=== PATIENT | female | born 1990 | race Caucasian/White ===

== ENCOUNTER 2017-10-19 14:24 | Emergency (ER) | payer SELFPAY ==
[~2017-10-19] VITALS: Ht 154.9 cm; Wt 50.0 kg
[~2017-10-19 14:24] MED LIST: AMOXICILLIN500 MG OR; AUGMENTIN875 MG PO; CIPRO500 MG OR; CIPROFLOXACN500 MG PO; FLAGYL ER750 MG PO; FLAGYL PO; FLEXERIL OR; LORTAB 5/3255 MG PO; NAPROSYN500 MG OR; NAPROSYN500 MG PO; NO; NO HOME MEDS; NORCO1 TA1 PO; PHENERGAN25 MG/TAB PO; PRENATABS RX OR; PRENATAL1 TAB OR; ULTRAM50 M1 OR; ULTRAM50 MG OR; ZOFRAN ODT4 MG PO; ZOFRAN4 MG OR
[2017-10-19 15:02] LABS: HEMATOCRIT 40.6 % (37.0-47.0); HEMOGLOBIN 13.7 g/dl (12.0-16.0); IMMATURE GRANULOCYTES 0.1 % (0.0-1.0); MEAN CELL VOLUME 96.7 fL CALC (80.0-100.0); MEAN CORPUSCULAR HGB 32.6 pG CALC (26.0-32.0); MEAN CORPUSCULAR HGB CONC 33.7 g/L CALC (32.0-36.0); NEUT# 5.44 thou/uL (2.00-7.15); RED BLOOD COUNT 4.2 mill/uL (4.20-5.60); RED CELL DISTRI WIDTH 13.7 % (11.5-15.5)
[2017-10-19 15:20] LABS: ALBUMIN 4.3 g/dL (3.2-5.0); ALKALINE PHOSPHATASE 86 u/l (38-126); ANION GAP 16 (6-22 (CALC)); BILIRUBIN, TOTAL 0.3 mg/dL (0.0-1.4); BUN 13 mg/dL (7-17); BUN/CREATININE RATIO 15 (12-20 (CALC)); CALCIUM 9.4 mg/dL (8.4-10.2); CARBON DIOXIDE 22 mmol/l (22-30); CHLORIDE 109 mmol/l (95-108); CREATININE 0.9 mg/dL (0.5-1.0); GFR > 60 ML/MIN (>=60 (CALC)); GFR FOR AFR.AMER. > 60 ML/MIN (>=60 (CALC)); GLUCOSE 112 mg/dL (65-105); POTASSIUM 4.1 mmol/l (3.5-5.1); SGOT/AST 23 u/l (14-36); SGPT/ALT 17 u/l (9-52); SODIUM 143 mmol/l (137-146); TOTAL PROTEIN 6.6 g/dL (6.3-8.2)
[2017-10-19 15:32] LABS: MYOGLOBIN 39 ng/mL (0 - 62)
[2017-10-19 16:10] LABS: URINE BILIRUBIN - DIPSTICK NEGATIVE (NEGATIVE); URINE BLOOD DIPSTICK NEGATIVE (NEGATIVE); URINE COLOR YELLOW; URINE GLUCOSE - DIPSTICK NEGATIVE (NEGATIVE); URINE KETONE NEGATIVE (NEGATIVE); URINE LEUK ESTERASE TRACE (NEGATIVE); URINE NITRITE - DIPSTICK NEGATIVE (Negative); URINE PROTEIN - DIPSTICK 30 mg/dL (NEG-TRACE); URINE SPECIFIC GRAVITY 1.025; URINE UROBILINOGEN - DIPSTICK 0.2 E.U./dL (0.2)
[2017-10-19 16:12] LABS: COCAINE NEGATIVE (NEGATIVE); TETRAHYDROCANNABIONOL NEGATIVE (NEGATIVE)
[2017-10-19 16:13] LABS: BARBITURATES NEGATIVE (NEGATIVE); METHADONE NEGATIVE (NEGATIVE); OXCYCODONE NEGATIVE (NEGATIVE); TRICYLIC ANTIDEPRESSANTS NEGATIVE (NEGATIVE)
[2017-10-19 16:14] LABS: URINE CLARITY SL CLOUDY
[2017-10-19 16:23] LABS: URINE SQUAMOUS EPITHELIAL CELL MANY EPI/hpf (0-FEW)
[2017-10-19] MEDS ORDERED: FLEXERIL PO (18:08)
[2017-10-19] MEDS ORDERED: NAPROSYN500 MG PO (18:08)
[2017-10-19 18:13] VITALS: BP 114/67
== END 2017-10-19 18:20 | disposition home or self-care (01) | DRG 552 ==
LOC: ED 14:24
PROVIDERS: Emergency Medicine
DX: M62.830 Muscle spasm of back (principal); K21.9 Gastro-esophageal reflux disease without esophagitis
CPT/HCPCS: Q9967

== ENCOUNTER 2017-11-07 03:37 | Emergency (ER) | payer SELFPAY ==
[~2017-11-07] VITALS: Ht 154.9 cm; Wt 50.0 kg
[~2017-11-07 03:37] MED LIST changes: +FLEXERIL PO
[2017-11-07] MEDS ORDERED: LORTAB 1010 MG PO (04:29)
[2017-11-07] MEDS ORDERED: CEPHALEXIN500 MG PO (04:29)
[2017-11-07 04:59] VITALS: BP 138/70
== END 2017-11-07 05:00 | disposition home or self-care (01) | DRG 156 ==
LOC: ED 03:37
DX: S02.2XXA Fracture of nasal bones, initial encounter for closed fracture (principal); Y04.0XXA Assault by unarmed brawl or fight, initial encounter; Y92.481 Parking lot as the place of occurrence of the external cause

== ENCOUNTER 2018-02-14 10:56 | Emergency (ER) | payer SELFPAY ==
[~2018-02-14] VITALS: Ht 154.9 cm; Wt 55.0 kg
[~2018-02-14 10:56] MED LIST changes: +CEPHALEXIN500 MG PO; +LORTAB 1010 MG PO
[2018-02-14 11:20] LABS: URINE BLOOD DIPSTICK NEGATIVE (NEGATIVE); URINE CLARITY SL CLOUDY; URINE COLOR AMBER; URINE GLUCOSE - DIPSTICK NEGATIVE (NEGATIVE); URINE KETONE TRACE mg/dL (NEGATIVE); URINE LEUK ESTERASE TRACE (NEGATIVE); URINE NITRITE - DIPSTICK NEGATIVE (Negative); URINE PROTEIN - DIPSTICK 100 mg/dL (NEG-TRACE); URINE SPECIFIC GRAVITY >=1.030
[2018-02-14 11:21] LABS: URINE BILIRUBIN - DIPSTICK NEGATIVE (NEGATIVE)
[2018-02-14 11:26] LABS: URINE MUCUS MANY hpf (NONE-FEW); URINE SQUAMOUS EPITHELIAL CELL MANY EPI/hpf (0-FEW)
[2018-02-14 11:27] LABS: URINE TRICHOMONAS FEW hpf
[2018-02-14] MEDS ORDERED: ZOFRAN4 MG/TAB PO (12:01)
[2018-02-14 12:02] VITALS: BP 109/70
== END 2018-02-14 12:07 | disposition home or self-care (01) | DRG 778 ==
LOC: ED 10:56
PROVIDERS: Emergency Medicine
DX: O20.0 Threatened abortion (principal); O99.331 Smoking (tobacco) complicating pregnancy, first trimester; F17.210 Nicotine dependence, cigarettes, uncomplicated; Z3A.01 Less than 8 weeks gestation of pregnancy

== ENCOUNTER 2018-04-19 19:35 | Emergency (ER) | payer SELFPAY ==
[~2018-04-19] VITALS: Ht 154.9 cm; Wt 54.4 kg
[~2018-04-19 19:35] MED LIST changes: +ZOFRAN4 MG/TAB PO
[2018-04-19] MEDS ORDERED: PROAIR HFA108 MCG/AC IN (20:40)
[2018-04-19] MEDS ORDERED: ROBITUSSIN200 MG/10 PO (20:40)
[2018-04-19 20:50] VITALS: BP 119/61
== END 2018-04-19 20:50 | disposition home or self-care (01) | DRG 781 ==
LOC: ED 19:35
DX: O99.511 Diseases of the respiratory system complicating pregnancy, first trimester (principal); J40 Bronchitis, not specified as acute or chronic; Z3A.00 Weeks of gestation of pregnancy not specified

== ENCOUNTER 2018-06-21 13:27 | Emergency (ER) | payer MEDICAID ==
[~2018-06-21] VITALS: Ht 170.2 cm; Wt 80.0 kg
[~2018-06-21 13:27] MED LIST changes: +PROAIR HFA108 MCG/AC IN; +ROBITUSSIN200 MG/10 PO
[2018-06-21 13:53] LABS: URINE BLOOD DIPSTICK SMALL (NEGATIVE); URINE GLUCOSE - DIPSTICK NEGATIVE (NEGATIVE); URINE KETONE >=80 mg/dL (NEGATIVE); URINE NITRITE - DIPSTICK NEGATIVE (Negative); URINE PH 6.5 (4.5-8.0); URINE PROTEIN - DIPSTICK 30 mg/dL (NEG-TRACE); URINE SPECIFIC GRAVITY 1.025
[2018-06-21 13:54] LABS: HEMOGLOBIN 14.1 g/dl (12.0-16.0); IMMATURE GRANULOCYTES 0.4 % (0.0-5.0); MEAN CELL VOLUME 97.6 fL CALC (80.0-100.0); MEAN CORPUSCULAR HGB 34.4 pG CALC (26.0-32.0); MEAN CORPUSCULAR HGB CONC 35.3 g/L CALC (32.0-36.0); NEUT# 12.79 thou/uL (2.00-7.15); RED BLOOD COUNT 4.1 mill/uL (4.20-5.60); RED CELL DISTRI WIDTH 13.2 % (11.5-15.5)
[2018-06-21 13:55] LABS: URINE BILIRUBIN - DIPSTICK SMALL (NEGATIVE); URINE CLARITY SL CLOUDY; URINE COLOR DK. YELLOW; URINE EPITHELIAL CELLS MODERATE EPI/hpf (0-FEW); URINE LEUK ESTERASE SMALL (NEGATIVE)
[2018-06-21 13:56] LABS: BARBITURATES NEGATIVE (NEGATIVE); COCAINE NEGATIVE (NEGATIVE); METHADONE NEGATIVE (NEGATIVE); OXCYCODONE NEGATIVE (NEGATIVE); TETRAHYDROCANNABIONOL POSITIVE (NEGATIVE); TRICYLIC ANTIDEPRESSANTS NEGATIVE (NEGATIVE); URINE BACTERIA FEW hpf
[2018-06-21] MEDS ORDERED: PRE-NATAL PO (14:04)
[2018-06-21 14:15] LABS: ALBUMIN 4.1 g/dL (3.2-5.0); ALKALINE PHOSPHATASE 115 u/l (38-126); ANION GAP 16 (6-22 (CALC)); BILIRUBIN, TOTAL 0.5 mg/dL (0.0-1.4); BUN 10 mg/dL (7-17); BUN/CREATININE RATIO 18 (12-20 (CALC)); CARBON DIOXIDE 22 mmol/l (22-30); CHLORIDE 104 mmol/l (95-108); CREATININE 0.6 mg/dL (0.5-1.0); GFR > 60 ML/MIN (>=60 (CALC)); GFR FOR AFR.AMER. > 60 ML/MIN (>=60 (CALC)); POTASSIUM 4.1 mmol/l (3.5-5.1); SGOT/AST 21 u/l (14-36); SGPT/ALT 24 u/l (9-52); SODIUM 137 mmol/l (137-146); TOTAL PROTEIN 7.4 g/dL (6.3-8.2)
[2018-06-21] MEDS ORDERED: KEFLEX500 M1 PO ×2 (15:46→15:49)
[2018-06-21 16:05] VITALS: BP 115/67
== END 2018-06-21 16:05 | disposition home or self-care (01) ==
LOC: ED 13:27
DX: O23.42 Unspecified infection of urinary tract in pregnancy, second trimester (principal); Z3A.27 27 weeks gestation of pregnancy; O46.92 Antepartum hemorrhage, unspecified, second trimester

== ENCOUNTER 2019-10-03 14:57 | Emergency (ER) | payer MEDICAID ==
[~2019-10-03] VITALS: Ht 170.2 cm; Wt 45.0 kg
[~2019-10-03 14:57] MED LIST changes: +KEFLEX500 M1 PO; +PRE-NATAL PO
[2019-10-03 16:55] VITALS: BP 107/61
[2019-11-11] MEDS ORDERED: IBUPROFEN600 MG PO (02:24)
== END 2019-10-03 16:55 | disposition home or self-care (01) ==
LOC: ED 14:57
DX: S30.0XXA Contusion of lower back and pelvis, initial encounter (principal); V58.4XXA Person boarding or alighting a pick-up truck or van injured in noncollision transport accident, initial encounter; Y92.481 Parking lot as the place of occurrence of the external cause

== ENCOUNTER 2019-11-11 | Emergency (ER) | payer MEDICAID ==
[2019-11-11] MEDS ORDERED: IBUPROFEN600 MG PO ×2 (02:24)
[2019-11-11] MEDS ORDERED: AMOXICILLIN500 MG PO (02:24)
== END 2019-11-11 04:10 | disposition home or self-care (01) ==
DX: K04.7 Periapical abscess without sinus (principal); K02.9 Dental caries, unspecified

== ENCOUNTER 2020-07-18 22:45 | Emergency (ER) | payer MEDICAID ==
[~2020-07-18] VITALS: Ht 154.9 cm; Wt 50.0 kg
[~2020-07-18 22:45] MED LIST changes: +AMOXICILLIN500 MG PO; +IBUPROFEN600 MG PO
[2020-07-18] MEDS ORDERED: TOBREX OPTH5 ML/BTL OD (23:27)
[2020-07-18] MEDS ORDERED: AMOX/K CLAV875 M1 PO (23:27)
[2020-07-18] MEDS ORDERED: CORTISPORIN OTI10 M2 AD (23:27)
[2020-07-18 23:45] VITALS: BP 113/77
== END 2020-07-18 23:45 | disposition home or self-care (01) ==
LOC: ED 22:45
DX: H66.91 Otitis media, unspecified, right ear (principal); H10.9 Unspecified conjunctivitis; F17.210 Nicotine dependence, cigarettes, uncomplicated

== ENCOUNTER 2020-09-06 00:33 | Emergency (ER) | payer MEDICAID ==
[~2020-09-06] VITALS: Ht 154.9 cm; Wt 50.0 kg
[~2020-09-06 00:33] MED LIST changes: +AMOX/K CLAV875 M1 PO; +CORTISPORIN OTI10 M2 AD; +TOBREX OPTH5 ML/BTL OD
[2020-09-06] MEDS ORDERED: DOXYCYCL HYC100 MG PO (01:08)
[2020-09-06 01:45] VITALS: BP 110/70
== END 2020-09-06 01:45 | disposition home or self-care (01) ==
LOC: ED 00:33
DX: S61.251A Open bite of left index finger without damage to nail, initial encounter (principal); L03.012 Cellulitis of left finger; F17.200 Nicotine dependence, unspecified, uncomplicated; W53.21XA Bitten by squirrel, initial encounter

== ENCOUNTER 2021-03-18 21:41 | Emergency (ER) | payer MEDICAID ==
[~2021-03-18] VITALS: Ht 154.9 cm; Wt 48.0 kg
[~2021-03-18 21:41] MED LIST changes: +DOXYCYCL HYC100 MG PO
[2021-03-18 22:11] LABS: HEMATOCRIT 38.8 % (37.0-47.0); HEMOGLOBIN 12.6 g/dl (12.0-16.0); IMMATURE GRANULOCYTES 0.5 % (0.0-5.0); MEAN CELL VOLUME 94.4 fL CALC (80.0-100.0); MEAN CORPUSCULAR HGB 30.7 pG CALC (26.0-32.0); MEAN CORPUSCULAR HGB CONC 32.5 g/dL CAL (32.0-36.0); NEUT# 11.4 thou/uL (2.00-7.15); RED BLOOD COUNT 4.11 mill/uL (4.20-5.60)
[2021-03-18 22:34] VITALS: BP 87/54
[2021-03-18 22:38] LABS: ALKALINE PHOSPHATASE 86 u/l (38-126); ANION GAP 9 (6-22 (CALC)); BILIRUBIN, TOTAL 0.6 mg/dL (0.0-1.4); BUN 15 mg/dL (7-17); BUN/CREATININE RATIO 20 (12-20 (CALC)); CARBON DIOXIDE 26 mmol/l (22-30); CHLORIDE 105 mmol/l (95-108); CREATININE 0.8 mg/dL (0.5-1.0); GFR > 60 ML/MIN (>=60 (CALC)); GFR FOR AFR.AMER. > 60 ML/MIN (>=60 (CALC)); POTASSIUM 3.7 mmol/l (3.5-5.1); SGOT/AST 18 u/l (14-36); SODIUM 136 mmol/l (137-146); TOTAL PROTEIN 7.6 g/dL (6.3-8.2)
[2021-03-18 22:50] LABS: MYOGLOBIN 30 ng/mL (0 - 62)
== END 2021-03-18 22:53 | disposition left against medical advice (07) ==
LOC: ED 21:41
PROVIDERS: Emergency Medicine
DX: R07.9 Chest pain, unspecified (principal); Q63.1 Lobulated, fused and horseshoe kidney; F17.200 Nicotine dependence, unspecified, uncomplicated; Z91.19 Patient's noncompliance with other medical treatment and regimen

== ENCOUNTER 2023-01-09 18:11 | Emergency (ER) | payer MEDICAID ==
[~2023-01-09] VITALS: Ht 154.9 cm; Wt 53.1 kg
[2023-01-09 18:16] VITALS: BP 109/79
[2023-01-09 19:00] VITALS: BP 110/65
[2023-01-09 19:01] LABS: BASO% 0.4 % (0-3); EOS% 1.2 % (0-8); HEMATOCRIT 39.6 % (37.0-47.0); HEMOGLOBIN 12.7 g/dl (12.0-16.0); LYMPH% 13.4 % (15-41); MEAN CELL VOLUME 90.4 fL CALC (80.0-100.0); MEAN CORPUSCULAR HGB CONC 32.1 g/dL CAL (32.0-36.0); MONO% 5.3 % (2-13); NEUT# 5.81 thou/uL (2.00-7.15); NEUT% 79.7 % (42-76); RED BLOOD COUNT 4.38 mill/uL (4.20-5.60); RED CELL DISTRI WIDTH 13.6 % (11.5-15.5)
[2023-01-09 19:16] LABS: ALBUMIN 3.9 g/dL (3.2-5.0); ALKALINE PHOSPHATASE 120 u/l (38-126); ANION GAP 11 (6-22 (CALC)); BUN 6 mg/dL (7-17); BUN/CREATININE RATIO 9 (12-20 (CALC)); CARBON DIOXIDE 26 mmol/l (22-30); CHLORIDE 104 mmol/l (95-108); CREATININE 0.7 mg/dL (0.5-1.0); GFR FOR AFR.AMER. > 60 ML/MIN (>=60 (CALC)); GFR OTHER RACES > 60 ML/MIN (>=60 (CALC)); LIPASE 43 u/l (23-300); POTASSIUM 3.3 mmol/l (3.5-5.1); SGOT/AST 20 u/l (14-36); SODIUM 137 mmol/l (137-146); TOTAL PROTEIN 7.8 g/dL (6.3-8.2)
[2023-01-09 19:17] LABS: BILIRUBIN, TOTAL 0.3 mg/dL (0.02-1.3)
[2023-01-09 20:00] VITALS: BP 105/58
[2023-01-09] MEDS ORDERED: MEDDOSEPAK PO (20:37)
[2023-01-09] MEDS ORDERED: ZYRTEC10 MG PO (20:37)
[2023-01-09] MEDS ORDERED: NAPROXEN500 MG PO (20:37)
[2023-01-09 20:48] LABS: URINE BILIRUBIN - DIPSTICK NEGATIVE (NEGATIVE); URINE BLOOD DIPSTICK NEGATIVE (NEGATIVE); URINE COLOR YELLOW; URINE GLUCOSE - DIPSTICK NEGATIVE (NEGATIVE); URINE KETONE NEGATIVE (NEGATIVE); URINE LEUK ESTERASE SMALL (NEGATIVE); URINE NITRITE - DIPSTICK POSITIVE (Negative); URINE PROTEIN - DIPSTICK NEGATIVE (NEG-TRACE); URINE UROBILINOGEN - DIPSTICK >=8.0 E.U./dL (0.2)
[2023-01-09] MEDS ORDERED: KEFLEX500 MG PO (20:53)
[2023-01-09 20:54] LABS: URINE BACTERIA MANY hpf; URINE SQUAMOUS EPITHELIAL CELL MANY EPI/hpf (0-FEW); URINE TRICHOMONAS FEW hpf
[2023-01-09 21:07] VITALS: BP 105/58
== END 2023-01-09 21:27 | disposition home or self-care (01) ==
LOC: ED 18:11
PROVIDERS: Nurse Practitioner
DX: R07.89 Other chest pain (principal); J32.9 Chronic sinusitis, unspecified; N39.0 Urinary tract infection, site not specified; Q63.1 Lobulated, fused and horseshoe kidney; B96.20 Unspecified Escherichia coli [E. coli] as the cause of diseases classified elsewhere; Z16.12 Extended spectrum beta lactamase (ESBL) resistance